=== PATIENT | female | born 2000 | race Caucasian/White ===

== ENCOUNTER → 2020-05-20 | Outpatient (CLI) | payer BC | LOC: LAB.O 08:11 | PROVIDERS: ATTEND Registered Nurse General Practice | DX: Z11.3 Encounter for screening for infections with a predominantly sexual mode of transmission (principal) ==

== ENCOUNTER → 2020-11-04 | Outpatient (CLI) | payer OTHER | LOC: GMAE 10:50 | PROVIDERS: ATTEND Family Medicine | DX: E61.1 Iron deficiency (principal) ==